=== PATIENT | male | born 1965 | race Asian ===

== ENCOUNTER 2016-09-20 12:38 | Emergency (ER) | payer BC ==
[~2016-09-20] VITALS: Ht 170.2 cm; Wt 70.8 kg
[~2016-09-20 12:38] MED LIST: CYCL10TA2 PO; HYDR-2678 PO; IBUP-1007 PO
[2016-09-20] MEDS ORDERED: IBUPROFEN 800 MG TABLET. PO ONE (13:30)
[2016-09-20 14:03] LABS: OBC FLU VALID
[2016-09-20] MEDS ORDERED: OSEL75CA PO (14:11)
--- NOTE | 2016-09-20 14:11 | PHYS DOC ---
Past Medical History Past Medical History: No Pertinent History Past Surgical History: No Surgical History Alcohol Use: None Drug Use: None Adult General Chief Complaint Chief Complaint: FLU SYMPTOM HPI HPI Patient is a 50 year old male who states that when he got up September 18, he didn't feel very well, and by the time he got home from work that day he had a fever, chills, cough, aches all over, headache. The symptoms have persisted. He has no chronic medical problems. No diabetes. He has taken ibuprofen with some relief. Review of Systems Review of Systems Constitutional: As in history of present illness Eyes: Denies change in visual acuity, redness, or eye pain [] HENT: Denies nasal congestion or sore throat [] Respiratory: Positive cough Cardiovascular: He does have chest pain that does not sound cardiac GI: Denies abdominal pain, nausea, vomiting, bloody stools or diarrhea [] : Denies dysuria or hematuria [] Musculoskeletal: Generalized aches and pains Integument: Denies rash or skin lesions [] Neurologic: Denies headache, focal weakness or sensory changes [] Current Medications Current Medications Current Medications Medications (Trade) Dose Ordered Sig/Julio Start Time Stop Time Status Last Admin Dose Admin Ibuprofen (Motrin) 800 mg 1X ONCE 09/20/16 13:30 09/20/16 13:30 DC Oseltamivir Phosphate (Tamiflu) 75 mg 1X ONCE 09/20/16 14:15 09/20/16 14:16 DC Allergies Allergies Allergies Coded Allergies Type Severity Reaction Last Updated Verified No Known Drug Allergies 07/15/16 No Physical Exam Physical Exam Constitutional: Well developed, well nourished, alert, mentating normally, appears to not feel well. HENT: Normocephalic, atraumatic, bilateral external ears normal, nose normal. [] Eyes: conjunctiva normal, no discharge. [] Neck: Normal range of motion, no stridor. [] Cardiovascular:Heart rate regular rhythm, no murmur [] Lungs & Thorax: Bilateral breath sounds clear to auscultation [] Skin: Warm, dry, no erythema, no rash. [] Extremities: No tenderness, no cyanosis, no clubbing, ROM intact, no edema. [] Neurologic: Alert and oriented X 3, normal motor function, normal sensory function, no focal deficits noted. [] Current Patient Data Vital Signs Vital Signs Date Time Temp Pulse Resp B/P Pulse Ox O2 Delivery O2 Flow Rate FiO2 09/20/16 13:32 99.3 102 20 113/70 94 Room Air 99.3 Lab Values Laboratory Tests Test 09/20/16 13:25 Influenza Type A Antigen Positive (NEGATIVE) Influenza Type B Antigen Negative (NEGATIVE) EKG EKG [] Radiology/Procedures Radiology/Procedures [] Course & Med Decision Making Course & Med Decision Making Pertinent Labs and Imaging studies reviewed. (See chart for details) 50-year-old male with symptom onset approximately 48 hours ago, positive for influenza. He was started on Tamiflu in the emergency department. A work note for 5 days off work. [] Dragon Disclaimer Dragon Disclaimer This electronic medical record was generated, in whole or in part, using a voice recognition dictation system. Departure Departure Impression: Primary Impression: Influenza Disposition: 01 HOME, SELF-CARE Condition: STABLE Referrals: NO PCP (PCP) Patient Instructions: Influenza A (H1N1) Additional Instructions: Stay at home for 5 days to avoid spreading influenza. Rest, fluids. Ibuprofen or Tylenol. Tamiflu was prescribed which will help it not be so bad. Scripts Oseltamivir Phosphate (Tamiflu)75 Mg [id number] Mg PO BID FLU #10 TAB Ref 0 For influenza Prov:WANDER COLUNGA MD 09/20/16 WANDER COLUNGA MD Sep 20, 2016 14:11
[2016-09-20] MEDS ORDERED: OSELTAMIVIR 75 MG CAPSULE PO ONE (14:15)
[2016-09-20 14:30] VITALS: BP 96/62
== END 2016-09-20 14:30 | disposition home or self-care (01) ==
LOC: ER 12:38
DX: J09.X2 Influenza due to identified novel influenza A virus with other respiratory manifestations (principal)
CPT/HCPCS: 87804; 99284

== ENCOUNTER → 2017-04-13 | Outpatient (CLI) | payer OTHER ==
[~2017-04-13] MED LIST changes: +OSEL75CA PO
--- NOTE | 2017-04-13 10:37 | KCIC ---
CHEST AP ONLY History: TB exposure Comparison: None. Findings: There is no infiltrate, pneumothorax, or effusion. The pericardial cardiac silhouette is within normal limits in size. The trachea is in the midline. No acute osseous abnormality is identified. Impression: 1. There is no evidence of acute cardiopulmonary disease. There are no radiographic findings suggestive of active tuberculosis. Electronically signed by: Griffin Garcia MD (04/13/2017 10:34 AM) [id number]
== END | disposition home or self-care (01) ==
LOC: KCIC 08:58
PROVIDERS: ATTEND Family Medicine
DX: Z20.1 Contact with and (suspected) exposure to tuberculosis (principal)
CPT/HCPCS: 71010

== ENCOUNTER 2019-09-11 17:28 | Emergency (ER) | payer BC, OTHER ==
[~2019-09-11] VITALS: Ht 157.5 cm; Wt 74.0 kg
[2019-09-11] MEDS ORDERED: IV NORMAL SALINE 1000ML BAG 1,000 ML IV SCH (18:30)
--- NOTE | 2019-09-11 18:30 | PHYS DOC ---
Past Medical History Past Medical History: No Pertinent History Past Surgical History: No Surgical History Smoking Status: Never Smoker Alcohol Use: None Drug Use: None Adult General Chief Complaint Chief Complaint: ABDOMINAL PAIN HPI HPI 53-year-old male presents to the emergency Department complaints of abdominal pain. Patient describes generalized pain however now worsening to the right lower quadrant with movement to Umbilicus. He states the pain was worse over the last couple of weeks. Describes this pain a 4 out of 10 fairly constant. He denies any nausea, vomiting, diarrhea, fever. He does describe urinary frequency, denies any dysuria. He denies any past medical history. He was seen at urgent care today and was referred to the emergency department for further evaluation. Nothing makes his pain worse, nothing makes his pain better. Review of Systems Review of Systems Constitutional: Denies fever or chills [] Respiratory: Denies cough or shortness of breath [] Cardiovascular: No additional information not addressed in HPI [] GI: + abdominal pain, no nausea, vomiting, bloody stools or diarrhea [] : Denies dysuria or hematuria [] Musculoskeletal: Denies back pain or joint pain [] Neurologic: Denies headache, focal weakness or sensory changes [] All other systems were reviewed and found to be within normal limits, except as documented in this note. Current Medications Current Medications Current Medications Medications (Trade) Dose Ordered Sig/Julio Start Time Stop Time Status Last Admin Dose Admin Info (CONTRAST GIVEN -- Rx MONITORING) 1 each PRN DAILY PRN 09/11/19 20:15 09/13/19 20:14 Iohexol (Omnipaque 300 Mg/ml) 75 ml 1X ONCE 09/11/19 20:15 09/11/19 20:16 DC 09/11/19 20:19 75 ML Sodium Chloride 1,000 ml @ 1,000 mls/hr Q1H 09/11/19 18:30 09/11/19 19:29 DC 09/11/19 19:02 1,000 MLS/HR Allergies Allergies Allergies Coded Allergies Type Severity Reaction Last Updated Verified No Known Drug Allergies 07/15/16 No Physical Exam Physical Exam Constitutional: Well developed, well nourished, no acute distress, non-toxic appearance. [] HENT: Normocephalic, atraumatic, bilateral external ears normal, oropharynx moist, no oral exudates, nose normal. [] Eyes: PERRLA, EOMI, conjunctiva normal, no discharge. [] Cardiovascular:Heart rate regular rhythm, no murmur [] Lungs & Thorax: Bilateral breath sounds clear to auscultation [] Abdomen: Bowel sounds normal, soft, TTP RLQ, negative rovsings sign, no masses, no pulsatile masses. [] Skin: Warm, dry, no erythema, no rash. [] Back: No tenderness, no CVA tenderness. [] Extremities: No tenderness, no edema. [] Neurologic: Alert and oriented X 3, no focal deficits noted. [] Psychologic: Affect normal, judgement normal, mood normal. [] Current Patient Data Vital Signs Vital Signs Date Time Temp Pulse Resp B/P (MAP) Pulse Ox O2 Delivery O2 Flow Rate FiO2 09/11/19 17:41 97.8 69 16 114/57 (76) 98 Room Air 97.8 Lab Values Laboratory Tests Test 09/11/19 17:50 09/11/19 19:00 White Blood Count 5.8 x10^3/uL (4.0-11.0) Red Blood Count 5.44 x10^6/uL (4.30-5.70) Hemoglobin 15.8 g/dL (13.0-17.5) Hematocrit 47.0 % (39.0-53.0) Mean Corpuscular Volume 86 fL (79-100) Mean Corpuscular Hemoglobin 29 pg (25-35) Mean Corpuscular Hemoglobin Concent 34 g/dL (31-37) Red Cell Distribution Width 12.3 % (11.5-14.5) Platelet Count 199 x10^3/uL (140-400) Neutrophils (%) (Auto) 49 % (31-73) Lymphocytes (%) (Auto) 37 % (24-48) Monocytes (%) (Auto) 8 % (0-9) Eosinophils (%) (Auto) 5 % (0-3) H Basophils (%) (Auto) 1 % (0-3) Neutrophils # (Auto) 2.9 x10^3/uL (1.8-7.7) Lymphocytes # (Auto) 2.2 x10^3/uL (1.0-4.8) Monocytes # (Auto) 0.5 x10^3/uL (0.0-1.1) Eosinophils # (Auto) 0.3 x10^3/uL (0.0-0.7) Basophils # (Auto) 0.1 x10^3/uL (0.0-0.2) Sodium Level 140 mmol/L (136-145) Potassium Level 3.8 mmol/L (3.5-5.1) Chloride Level 103 mmol/L (98-107) Carbon Dioxide Level 26 mmol/L (21-32) Anion Gap 11 (6-14) Blood Urea Nitrogen 20 mg/dL (8-26) Creatinine 1.1 mg/dL (0.7-1.3) Estimated GFR (Cockcroft-Gault) 70.0 BUN/Creatinine Ratio 18 (6-20) Glucose Level 96 mg/dL (70-99) Calcium Level 9.2 mg/dL (8.5-10.1) Total Bilirubin 0.8 mg/dL (0.2-1.0) Aspartate Amino Transferase (AST) 23 U/L (15-37) Alanine Aminotransferase (ALT) 24 U/L (16-63) Alkaline Phosphatase 63 U/L (46-116) Troponin I Quantitative < 0.017 ng/mL (0.000-0.055) Total Protein 8.8 g/dL (6.4-8.2) H Albumin 4.2 g/dL (3.4-5.0) Albumin/Globulin Ratio 0.9 (1.0-1.7) L Lipase 186 U/L (73-393) Urine Collection Type Void Urine Color Yellow Urine Clarity Clear Urine pH 5.5 Urine Specific [place] 1.025 Urine Protein Negative mg/dL (NEG-TRACE) Urine Glucose (UA) Negative mg/dL (NEG) Urine Ketones (Stick) Negative mg/dL (NEG) Urine Blood Negative (NEG) Urine Nitrite Negative (NEG) Urine Bilirubin Negative (NEG) Urine Urobilinogen Dipstick 0.2 mg/dL (0.2 mg/dL) Urine Leukocyte Esterase Negative (NEG) Urine RBC Occ /HPF (0-2) Urine WBC Occ /HPF (0-4) Urine Squamous Epithelial Cells Few /LPF Urine Bacteria 0 /HPF (0-FEW) Urine Mucus Mod /LPF Laboratory Tests 09/11/19 17:50 Laboratory Tests 09/11/19 17:50 EKG EKG [] Radiology/Procedures Radiology/Procedures [facility] [address] [place] [address] IMAGING REPORT Signed PATIENT: NIGHAT TORRES ACCOUNT: [id number] : 1965 LOCATION: ER AGE: 53 SEX: M EXAM STATUS: REG ER ORD. PHYSICIAN: VANESSA VEGA MD REASON: abdominal pain, RLQ PROCEDURE: CT ABD PELV W/ IV CONTRST ONLY Exam: CT of abdomen and pelvis with contrast INDICATION: Abdominal pain TECHNIQUE: Sequential axial images through the abdomen and pelvis obtained following the administration of 75 mL of Omni 300 IV contrast. Sagittal and coronal reformatted images were reconstructed from the axial data and reviewed. Comparisons: None FINDINGS: Heart size is normal. No pericardial effusion. Strandy opacities at the dependent portion lungs likely representing atelectasis. No pleural effusion. Liver, spleen, pancreas, gallbladder and adrenals are unremarkable. Kidneys demonstrate symmetric enhancement. No perinephric inflammation or hydronephrosis. No renal or ureteral calculi are identified. Bladder is distended and appears thin-walled. Prostate is not enlarged. Large and small bowel are unremarkable. Appendix is not identified. No free intra-abdominal air or fluid. No obstruction. Abdominal aorta has a normal course and caliber. Abdominal vasculature is patent. No enlarged abdominal lymph nodes are identified. No suspicious osseous lesions or acute fractures. IMPRESSION: 1. Normal appendix. 2. No acute process identified within the abdomen or pelvis. Exposure: One or more of the following in the visualized dose reduction techniques were utilized for this examination: 1. Automated exposure control 2. Adjustment of the MA and/or KV according to patient size 3. Use of iterative of reconstructive technique Electronically signed by: Juhi Chang MD (09/11/2019 8:34 PM) [id number] DICTATED and SIGNED BY: JUHI CHANG MD DATE: 09/11/192033 [] Course & Med Decision Making Course & Med Decision Making Pertinent Labs and Imaging studies reviewed. (See chart for details) []53-year-old male presents to the emergency Department complaints of abdominal pain. Patient describes generalized pain however now worsening to the right lower quadrant with movement to Umbilicus. He states the pain was worse over the last couple of weeks. Describes this pain a 4 out of 10 fairly constant. He denies any nausea, vomiting, diarrhea, fever. He does describe urinary frequency, denies any dysuria. He denies any past medical history. He was seen at urgent care today and was referred to the emergency department for further evaluation. Nothing makes his pain worse, nothing makes his pain better. Labs, imaging reviewed CT without evidence of acute intra-abdominal process, urinalysis negative, CMP negative, white blood cell count within normal limits This may be secondary to musculoskeletal, try Bentyl as well to see if this is perhaps colonic spasm. Discussed findings with patient at bedside Return precautions provided Dragon Disclaimer Dragon Disclaimer This electronic medical record was generated, in whole or in part, using a voice recognition dictation system. Departure Departure Impression: Primary Impression: Abdominal pain Disposition: HOME, SELF-CARE Condition: STABLE Referrals: UNKNOWN PCP NAME (PCP) Patient Instructions: Abdominal Pain (Nonspecific) Additional Instructions: Recommend follow up with PCP 3 - 5 days Return to the ER with worsening symptoms, intractable pain, fever, altered mental status Tylenol/Motrin as needed for pain CT without acute findings of abdominal process Urine negative for infection Scripts Dicyclomine Hcl (DICYCLOMINE HCL) 10 Mg Capsule 1 CAP PO TID for 7 Days, #21 CAP 0 Refills Prov: VANESSA VEGA MD 09/11/19 Problem Qualifiers Primary Impression: Abdominal pain Abdominal location: right lower quadrant Qualified Codes: R10.31 - Right lower quadrant pain VANESSA VEGA MD Sep 11, 2019 18:30
[2019-09-11 18:43] LABS: BASO # 0.1 x10^3/uL (0.0-0.2); BASO % 1 % (0-3); EOS # 0.3 x10^3/uL (0.0-0.7); EOS % 5 % (0-3); HEMOGLOBIN 15.8 g/dL (13.0-17.5); LYMPH # 2.2 x10^3/uL (1.0-4.8); LYMPH % 37 % (24-48); MEAN CORPUSCULAR HEMOGLOBIN 29 pg (25-35); MEAN CORPUSCULAR HGB CONC 34 g/dL (31-37); MEAN CORPUSCULAR VOLUME 86 fL (79-100); MONO # 0.5 x10^3/uL (0.0-1.1); MONO % 8 % (0-9); NEUT # 2.9 x10^3/uL (1.8-7.7); NEUT % 49 % (31-73); PLATELET COUNT 199 x10^3/uL (140-400); RED BLOOD COUNT 5.44 x10^6/uL (4.30-5.70); RED CELL DISTRIBUTION WIDTH 12.3 % (11.5-14.5); WHITE BLOOD COUNT 5.8 x10^3/uL (4.0-11.0)
[2019-09-11 18:53] LABS: CALCIUM 9.2 mg/dL (8.5-10.1); CREATININE 1.1 mg/dL (0.7-1.3); POTASSIUM 3.8 mmol/L (3.5-5.1)
[2019-09-11 18:58] LABS: ALBUMIN 4.2 g/dL (3.4-5.0); ALBUMIN/GLOBULIN RATIO 0.9 (1.0-1.7); TOTAL BILIRUBIN 0.8 mg/dL (0.2-1.0); TOTAL PROTEIN 8.8 g/dL (6.4-8.2)
[2019-09-11 19:13] LABS: BILIRUBIN,URINE NEGATIVE (NEG); CLARITY,URINE CLEAR; COLOR,URINE YELLOW; NITRITE,URINE NEGATIVE (NEG); PH,URINE 5.5; PROTEIN,URINE NEGATIVE (NEG-TRACE); UROBILINOGEN,URINE 0.2 mg/dL (0.2 mg/dL)
[2019-09-11 19:19] LABS: SQUAMOUS EPITHELIAL CELL,UR FEW /LPF
[2019-09-11 19:21] LABS: RBC,URINE OCC /HPF (0-2); WBC,URINE OCC /HPF (0-4)
[2019-09-11 19:22] LABS: BACTERIA,URINE 0 /HPF (0-FEW)
[2019-09-11 20:13] VITALS: BP 117/76
[2019-09-11] MEDS ORDERED: CONTRAST GIVEN. MC PRN (20:15)
[2019-09-11] MEDS ORDERED: IOHEXOL 300 MG/ML 100ML VIAL. IV ONE (20:15)
--- NOTE | 2019-09-11 20:37 | RAD ---
Exam: CT of abdomen and pelvis with contrast INDICATION: Abdominal pain TECHNIQUE: Sequential axial images through the abdomen and pelvis obtained following the administration of 75 mL of Omni 300 IV contrast. Sagittal and coronal reformatted images were reconstructed from the axial data and reviewed. Comparisons: None FINDINGS: Heart size is normal. No pericardial effusion. Strandy opacities at the dependent portion lungs likely representing atelectasis. No pleural effusion. Liver, spleen, pancreas, gallbladder and adrenals are unremarkable. Kidneys demonstrate symmetric enhancement. No perinephric inflammation or hydronephrosis. No renal or ureteral calculi are identified. Bladder is distended and appears thin-walled. Prostate is not enlarged. Large and small bowel are unremarkable. Appendix is not identified. No free intra-abdominal air or fluid. No obstruction. Abdominal aorta has a normal course and caliber. Abdominal vasculature is patent. No enlarged abdominal lymph nodes are identified. No suspicious osseous lesions or acute fractures. IMPRESSION: 1. Normal appendix. 2. No acute process identified within the abdomen or pelvis. Exposure: One or more of the following in the visualized dose reduction techniques were utilized for this examination: 1. Automated exposure control 2. Adjustment of the MA and/or KV according to patient size 3. Use of iterative of reconstructive technique Electronically signed by: Juhi Helm MD (09/11/2019 8:34 PM) [id number]
[2019-09-11] MEDS ORDERED: DICY10CA3 PO (20:54)
--- NOTE | 2019-09-12 06:02 | EKG ---
[facility] [address] [place] [address] Test Date: 2019-09-11 Test Time: 18:59:15 Pat Name: NIGHAT TORRES Department: Room: Gender: M [employer]: : 1965 Requested By: VANESSA VEGA Order Number: [id number] Reading MD: Measurements Intervals [place] Rate: 70 P: -41 NV: 178 QRS: 61 QRSD: 84 T: 30 QT: 352 QTc: 383 Interpretive Statements SINUS RHYTHM OTHERWISE NORMAL ECG RI6.01 No previous ECG available for comparison
== END 2019-09-11 21:06 | disposition home or self-care (01) ==
LOC: ER 17:28
DX: R10.31 Right lower quadrant pain (principal); R35.0 Frequency of micturition
CPT/HCPCS: 36415; 74177; 80053; 81001; 83690; 84484; 85025; 93005; 99285; J7030; Q9967